=== PATIENT | male | born 1965 | race African-American/Black ===

== ENCOUNTER 2017-09-01 04:59 | Inpatient (IN) | payer BC, OTHER ==
--- NOTE | 2017-09-01 05:12 | PD ---
HPI Chief Complaint: psychiatric evaluation Time Seen by Provider: 05:09 Travel History International Travel<30 days: No Contact w/Intl Traveler<30days: No History of Present Illness HPI Patient comes into the emergency department under police escort under De Jesus act for suicidal ideations. Patient states he's been feeling depressed and having thoughts of suicide. Patient denies any current plans. Patient reports a history of suicide attempt by overdose. Patient denies any medical complaints at this time. Denies any chest pain, shortness of breath, abdominal pain, nausea, vomiting, loss change in bowel or bladder, headaches, or fevers. Denies anything making symptoms better or worse. PFSH Past Medical History Depression: Yes Cardiovascular Problems: Yes (HTN) Diabetes: Yes Diminished Hearing: No Hypertension: Yes Immunizations Current: Yes Past Surgical History Appendectomy: Yes Tonsillectomy: Yes Social History Alcohol Use: Yes (10-15 BEERS DAILY) Tobacco Use: Yes (1PPD) Substance Use: Yes (COCAINE, HERION) Allergies-Medications (Allergen,Severity, Reaction): Coded Allergies: iodine (Verified Allergy, Unknown, 08/26/17) Reported Meds & Prescriptions Reported Meds & Active Scripts Active No Active Prescriptions or Reported Medications Review of Systems Except as stated in HPI: all other systems reviewed are Neg Physical Exam Narrative GENERAL: Well-developed, overly nourished, in no acute distress, and non-ill appearing. SKIN: Focused skin assessment warm and dry. HEAD: Atraumatic. Normocephalic. EYES: Pupils equal and round. EOMI. No scleral icterus. No injection or drainage. ENT: No nasal bleeding or discharge. Mucous membranes pink and moist. NECK: Trachea midline. No JVD. Supple. No nuclear rigidity. CARDIOVASCULAR: Regular rate and rhythm. No murmur appreciated. RESPIRATORY: No accessory muscle use. No respiratory distress. Clear to auscultation. Breath sounds equal bilaterally. MUSCULOSKELETAL: No obvious deformities. No clubbing. No cyanosis. No edema. Full range of motion. NEUROLOGICAL: Awake and alert. No obvious cranial nerve deficits. Motor grossly within normal limits. Normal speech. PSYCHIATRIC: Appropriate mood and affect. Data Data Last Documented VS Vital Signs Date Time Temp Pulse Resp B/P (MAP) Pulse Ox O2 Delivery O2 Flow Rate FiO2 09/01/17 06:21 98.5 84 18 127/70 (89) 100 Room Air Orders Orders Complete Blood Count With Diff (09/01/17 05:09) Comprehensive Metabolic Panel (09/01/17 05:09) Psych Screen (09/01/17 05:09) Drug Screen, Random Urine (09/01/17 05:09) Alcohol (Ethanol) (09/01/17 05:09) Salicylates (Aspirin) (09/01/17 05:09) Tylenol (Acetaminophen) (09/01/17 05:09) Labs Laboratory Tests Test 09/01/17 05:12 White Blood Count 7.3 TH/MM3 Red Blood Count 4.49 MIL/MM3 Hemoglobin 13.2 GM/DL Hematocrit 39.3 % Mean Corpuscular Volume 87.5 FL Mean Corpuscular Hemoglobin 29.5 PG Mean Corpuscular Hemoglobin Concent 33.7 % Red Cell Distribution Width 14.9 % Platelet Count 283 TH/MM3 Mean Platelet Volume 8.2 FL Neutrophils (%) (Auto) 50.8 % Lymphocytes (%) (Auto) 33.2 % Monocytes (%) (Auto) 8.1 % Eosinophils (%) (Auto) 4.3 % Basophils (%) (Auto) 3.6 % Neutrophils # (Auto) 3.7 TH/MM3 Lymphocytes # (Auto) 2.4 TH/MM3 Monocytes # (Auto) 0.6 TH/MM3 Eosinophils # (Auto) 0.3 TH/MM3 Basophils # (Auto) 0.3 TH/MM3 CBC Comment DIFF FINAL Differential Comment Blood Urea Nitrogen 15 MG/DL Creatinine 1.28 MG/DL Random Glucose 158 MG/DL Total Protein 7.9 GM/DL Albumin 3.7 GM/DL Calcium Level 8.8 MG/DL Alkaline Phosphatase 63 U/L Aspartate Amino Transf (AST/SGOT) 40 U/L Alanine Aminotransferase (ALT/SGPT) 36 U/L Total Bilirubin 0.3 MG/DL Sodium Level 138 MEQ/L Potassium Level 4.5 MEQ/L Chloride Level 104 MEQ/L Carbon Dioxide Level 25.4 MEQ/L Anion Gap 9 MEQ/L Estimat Glomerular Filtration Rate 72 ML/MIN Salicylates Level LESS THAN 1.7 MG/DL Acetaminophen Level LESS THAN 2.0 MCG/ML Ethyl Alcohol Level 131 MG/DL MDM Medical Decision Making Medical Screen Exam Complete: Yes Emergency Medical Condition: Yes Differential Diagnosis Homicidal, suicidal, depression, metabolic disturbance, other Narrative Course Patient was seen and examined. Labs were obtained and reviewed with the exception of urine drug screen has not been sent yet. Patient medically cleared for further treatment and evaluation by psych. Final disposition per psych. Diagnosis Primary Impression: Alcohol intoxication Qualified Codes: F10.920 - Alcohol use, unspecified with intoxication, uncomplicated Additional Impressions: Suicidal ideations Medical clearance for psychiatric admission Scripts No Active Prescriptions or Reported Meds Condition: Duc De Leon Sep 01, 2017 05:12
[2017-09-01 05:32] LABS: AUTOMATED NEUTROPHIL # 3.7 TH/MM3 (1.8-7.7); BASOPHIL # 0.3 TH/MM3 (0-0.2); BASOPHIL % 3.6 % (0.0-2.0); EOSINOPHIL # 0.3 TH/MM3 (0-0.4); EOSINOPHIL % 4.3 % (0.0-4.0); HEMATOCRIT 39.3 % (39.0-51.0); HEMO FLAGS DIFF FINAL; LYMPH % 33.2 % (9.0-44.0); LYMPHOCYTE # 2.4 TH/MM3 (1.0-4.8); MEAN CELL VOLUME 87.5 FL (80.0-100.0); MEAN CORPUSCULAR HEMOGLOBIN 29.5 PG (27.0-34.0); MEAN CORPUSCULAR HGB CONC 33.7 % (32.0-36.0); MONO % 8.1 % (0.0-8.0); NEUT % 50.8 % (16.0-70.0); PLATELET COUNT 283 TH/MM3 (150-450); RED BLOOD COUNT 4.49 MIL/MM3 (4.50-5.90); RED CELL DISTRIBUTION WIDTH 14.9 % (11.6-17.2); WHITE BLOOD COUNT 7.3 TH/MM3 (4.0-11.0)
[2017-09-01 05:54] LABS: ALKALINE PHOSPHATASE 63 U/L (45-117); TOTAL BILIRUBIN ADULT 0.3 MG/DL (0.2-1.0)
[2017-09-01 06:07] LABS: ALT (GPT) 36 U/L (12-78); ANION GAP 9 MEQ/L (5-15); AST (GOT) 40 U/L (15-37); BICARBONATE 25.4 MEQ/L (21.0-32.0); BLOOD UREA NITROGEN 15 MG/DL (7-18); CHLORIDE 104 MEQ/L (98-107); GLOMERULAR FILTRATION RATE 72 ML/MIN (>89); SODIUM (NA) 138 MEQ/L (136-145)
[2017-09-01 06:13] LABS: ACETAMINOPHEN LESS THAN 2.0 MCG/ML (10.0-30.0); ALCOHOL 131 MG/DL (0-5); POTASSIUM 4.5 MEQ/L (3.5-5.1)
[2017-09-01 06:21] VITALS: BP 127/70; PULSE 84; RESP 18; TEMP 98.5; O2SAT 100
[2017-09-01 06:58] VITALS: BP 159/82; PULSE 82; RESP 17; TEMP 98.6; O2SAT 95
[2017-09-01] MEDS ORDERED: ACETAMINOPHEN 325 MG TAB PO PRN (11:45)
[2017-09-01] MEDS ORDERED: MAGNESIUM HYDROXIDE SUSP 30 ML CUP PO PRN (11:45)
[2017-09-01] MEDS ORDERED: ALUMINUM/MAGNESIUM/SIMETH 30 ML CUP PO PRN (11:45)
[2017-09-01] MEDS ORDERED: LORazepam 1 MG TAB PO PRN (11:45)
[2017-09-01] MEDS ORDERED: LORazepam 0.5 MG TAB PO PRN (11:45)
[2017-09-01] MEDS ORDERED: LORazepam 2 MG/ML VIAL IM PRN ×2 (11:45)
[2017-09-01] MEDS: NICOTINE 21 MG/24 HR PATCH T-DERMAL SCH (11:45)
[2017-09-01 17:23] VITALS: BP 168/105; PULSE 85; RESP 18; TEMP 98.7; O2SAT 98
[2017-09-01] MEDS: cloNIDine HCL 0.2 MG TAB PO SCH ×2 (18:22→22:00)
[2017-09-01 21:00] VITALS: BP 134/78; PULSE 76; RESP 16
[2017-09-01] MEDS ORDERED: REMOVE OLD NICODERM (NICOTINE) PATCH T-DERMAL SCH (21:00)
[2017-09-02 06:18] VITALS: BP 133/90; PULSE 81; RESP 18; TEMP 100; O2SAT 97
[2017-09-02] MEDS: cloNIDine HCL 0.2 MG TAB PO SCH (06:22)
[2017-09-02] MEDS: NICOTINE 21 MG/24 HR PATCH T-DERMAL SCH (09:00)
[2017-09-02] MEDS ORDERED: INFLUENZA VIRUS VACCINE (QUADRIVALENT) 0.5 ML SYR IM ONE (10:00)
[2017-09-02] MEDS ORDERED: ACETAMINOPHEN 325 MG TAB PO PRN (12:30)
--- NOTE | 2017-09-02 12:48 | HHI.HP ---
Provisional Diagnosis Admission Date Sep 01, 2017 at 11:44 [place]. Adjustment disorder with mixed disturbances of emotion and conduct f 43.25, cocaine abuse f 14.10 alcohol abuse/intoxication f 10.129 Certification of Person's Competence To Provide Express and Informed Consent I have personally examined Marcus ChowJr , a person being served at [facility] on, Sep 02, 2017 12:26. Express and informed consent means consent voluntarily given in writing, by a competent person, after sufficient explanation and disclosure of the subject matter involved to enable the person to make a knowing and willful decision without any element of force, fraud, deceit, duress, or other form of constraint or coercion. This person is 18 years of age or older, is not now known to be incompetent to consent to treatment with a guardian advocate, and does not have a health care surrogate or proxy currently making medical treatment decisions. I have found this person to be one of the following: [xxx] Competent to provide express and informed consent, as defined above, for voluntary admission to this facility and is competent to provide express and informed consent for treatment. He/she has the consistent capacity to make well reasoned, willful, and knowing decisions concerning his or her medical or mental health treatment. The person fully and consistently understands the purpose of the admission for examination/placement and is fully capable of personally exercising all rights assured under [place] Incompetent to provide express and informed consent to voluntary admission, and this is incompetent to provide express and informed consent to treatment. The person must be transferred to involuntary status and a petition for a guardian advocate filed with the Circuit Court. [] Refusing to provide express and informed consent to voluntary admission but is competent to provide express and informed consent for treatment. The person must be discharged or transferred to involuntary status. Form shall be completed within 24 hours of a person's arrival at the receiving facility and filed in the clinical record of each person: 1. Admitted on a voluntary basis 2. Permitted to provide express and informed consent to his/her own treatment 3. Allowed to transfer from involuntary to voluntary status 4. Prior to permitting a person to consent to his or her own treatment after having been previously found incompetent to consent to treatment. History of Present Illness Capacity: Has Capacity Psych Chief Complaint: impression suicidal ideation HPI Patient is a 51-year-old Afro-Afghan male comes her under De Jesus act by the [place] [employer] dated 09-06 at 4:40 AM that document reviewed and essentially states Mr. Chow expressed that he is depressed and feeling suicidal. Patient seen screened in the ED there is no urine toxicology done blood alcohol level of 131. Of interest patient was seen here on 08/26/16 to 08/27/16 under visit [id number] at that time his urine toxicology was positive for cocaine and he had a negative alcohol level, he was psychiatrically screened at that time denies suicidality homicidality and was discharged with referral to [facility]. At the present time patient laying in his bed in his room counselor Khari and medical student Vadim present throughout session patient alert oriented heavyset Afro-Afghan male laying in bed in a marked guarded vigilant irritable and manipulative demanding attitude. Giving vague generalizations about being depressed and nothing going right for him. He denies any prior psychiatric contact hospitalizations his psychotropic medications. He acknowledges polysubstance abuse going back and number of years including IV heroin and mushroom use. He acknowledges being in the [facility] until about 2 months ago he was there for a couple of weeks. The relapsed soon after leaving there. He acknowledges significant alcohol use with detoxes in the past for that reason. He acknowledges at least 4 DUIs in the past and also brief incarcerations related to the above. It appears she is been in a local sober house until about 2 weeks ago was the left to go use multiple drugs and alcohol leading to him being kicked out of their. Patient states he is has 4 children and the [place] area that he has very little contact with. In any event at the present time patient does not meet De Jesus act criteria there is marked manipulation involved with this man's behavior. I feel his issues are substance related in nature. He does not meet criteria for inpatient psychiatric hospitalization thus I will lift the De Jesus act allow the patient to be discharged to himself. We will just bought into the homeless coalition. He does not wish referrals to sober houses or other resources. There will be no Rx by me Review of Systems Constitutional: DENIES: Diaphoretic episodes, Fatigue, Fever, Weight gain, Weight loss, Chills, Dizziness, Change in appetite, Night Sweats Endocrine: DENIES: Heat/cold intolerance, Polydipsia, Polyuria, Polyphagia Eyes: DENIES: Blurred vision, Diplopia, Eye inflammation, Eye pain, Vision loss , Photosensitivity, Double Vision Ears, nose, mouth, throat: DENIES: Tinnitus, Hearing loss, Vertigo, Nasal discharge, Oral lesions, Throat pain, Hoarseness, Ear Pain, Running Nose, Epistaxis, Sinus Pain, Toothache, Odynophagia Respiratory: DENIES: Apneas, Cough, Snoring, Wheezing, Hemoptysis, Sputum production, Shortness of breath Cardiovascular: DENIES: Chest pain, Palpitations, Syncope, Dyspnea on Exertion , PND, Lower Extremity Edema, Orthopnea, Claudication Gastrointestinal: DENIES: Abdominal pain, Black stools, Bloody stools, Constipation, Diarrhea, Nausea, Vomiting, Difficulty Swallowing, Anorexia Genitourinary: DENIES: Sexual dysfunction, Urinary frequency, Urinary incontinence, Urgency, Hematuria, Dysuria, Nocturia, Penile Discharge, Testicular Pain, Testicular Swelling Musculoskeletal: DENIES: Joint pain, Muscle aches, Stiffness, Joint Swelling, Back pain, Neck pain Integumentary: DENIES: Abnormal pigmentation, Nail changes, Pruritus, Rash Hematologic/lymphatic: DENIES: Bruising, Lymphadenopathy Neurologic: DENIES: Abnormal gait, Headache, Localized weakness, Paresthesias, Seizures, Speech Problems, Tremor, Poor Balance Psychiatric: DENIES: Anxiety, Confusion, Mood changes, Depression, Hallucinations, Agitation, Suicidal Ideation, Homicidal Ideation, Delusions Past Psych History Psychological trauma history Patient denies Violence risk - others (6 mos) Low Violence risk - self (6 mos) Low Substance Abuse History Drugs/Alcohol past 12 months Active alcoholic cocaine long history of polysubstance abuse Past Family Social History Coded Allergies: iodine (Verified Allergy, Unknown, 09/01/17) No Active Prescriptions or Reported Meds Current Medications Medications (Trade) Dose Ordered Sig/Shital Route Start Time Stop Time Status Last Admin (Ativan) 1 mg Q6H PRN PO 09/01/17 11:45 09/02/17 10:43 (Ativan Inj) 1 mg Q6H PRN IM 09/01/17 11:45 (Ativan) 0.5 mg Q12H PRN PO 09/01/17 11:45 (Ativan Inj) 0.5 mg Q12H PRN IM 09/01/17 11:45 (Tylenol) 650 mg Q4H PRN PO 09/01/17 11:45 (Milk Of Magnesia Liq) 30 ml DAILY PRN PO 09/01/17 11:45 (Mag-Al Plus Susp Liq) 30 ml Q6H PRN PO 09/01/17 11:45 (Habitrol 21 Mg Patch.24 Hr) 1 patch DAILY T-DERMAL 09/01/17 11:45 (Catapres) 0.2 mg Q8HR PO 09/01/17 18:00 09/02/17 06:22 Miscellaneous Information 1 HS T-DERMAL 09/01/17 21:00 (Tylenol) 650 mg Q4H PRN PO 09/02/17 12:30 UNV Family Psych History Patient refuses to discuss it Social History Patient with 4 children in [place] though from his patient now homeless Patient's Strengths (min. 2) Patient verbal label actions health care Physical Exam Patient medically cleared in ED exam reviewed and agreed with patient laying quietly in his bed though vigilant guarded irritable and manipulative is in no acute distress, he is in no respiratory distress, no complaints of abdominal pain, patient moving all 4 extremities without difficulty, no abnormal motor movements noted Vital Signs Vital Signs Date Time Temp Pulse Resp B/P (MAP) Pulse Ox O2 Delivery O2 Flow Rate FiO2 09/02/17 06:18 100.0 81 18 133/90 (104) 97 09/01/17 06:21 Room Air Mental Status Examination Appearance: Appropriate Consciousness: Alert Orientation: x4 Motor Activity: Normal gait Speech: Unremarkable Language: Adequate Fund of Knowledge: Adequate Attention and Concentration: Other (fair) Memory: Unremarkable Mood: Angry, Irritable, Other (manipulative) Affect: Other (good range intensity) Thought Process & Associations: Circumstantial Thought Content: Appropriate Hallucination Type: None Delusion Type: None Suicidal Ideation: Yes (made vague statements but is manipulative) Suicidal Plan: No Suicidal Intention: No Homicidal Ideation: No Homicidal Plan: No Homicidal Intention: No Insight: Poor Judgment: Poor Assessment & Plan Problem List: (1) Adjustment disorder with mixed disturbance of emotions and conduct ICD Codes: F43.25 - Adjustment disorder with mixed disturbance of emotions and conduct (2) Alcohol abuse with intoxication ICD Codes: F10.129 - Alcohol abuse with intoxication, unspecified (3) Cocaine abuse ICD Codes: F14.10 - Cocaine abuse, uncomplicated Assessment & Plan Estimated LOS: days Discharge Planning Patient does not meet De Jesus criteria will lift De Jesus act. Patient to be discharged to himself. Will refer him to the homeless coalition. No Rx by me. Patient refusing referrals to support groups in town or sober living referral in town Request HC Surrog/Guard Advoc?: No Jez Espinoza MD Sep 02, 2017 12:48
--- NOTE | 2017-09-02 12:52 | HHI.DS ---
Psychiatry Discharge Summary Inpatient Psychiatric care?: Yes Advance Directive: No Reason Not Provided: Not Interested Mental Health AdvanceDirective: No Health Care Proxy: No Admission Admission Date Sep 01, 2017 at 11:44 Admission Diagnosis: (1) Alcohol abuse with intoxication ICD Code: F10.129 - Alcohol abuse with intoxication, unspecified (2) Cocaine abuse ICD Code: F14.10 - Cocaine abuse, uncomplicated (3) Adjustment disorder with mixed disturbance of emotions and conduct ICD Code: F43.25 - Adjustment disorder with mixed disturbance of emotions and conduct Brief History Patient is a 51-year-old Afro-Burmese male comes her under De Jesus act by the [place] [employer] dated 09-06 at 4:40 AM that document reviewed and essentially states Mr. Chow expressed that he is depressed and feeling suicidal. Patient seen screened in the ED there is no urine toxicology done blood alcohol level of 131. Of interest patient was seen here on 08/26/16 to 08/27/16 under visit [id number] at that time his urine toxicology was positive for cocaine and he had a negative alcohol level, he was psychiatrically screened at that time denies suicidality homicidality and was discharged with referral to [facility]. At the present time patient laying in his bed in his room counselor Khari and medical student Vadim present throughout session patient alert oriented heavyset Afro-Burmese male laying in bed in a marked guarded vigilant irritable and manipulative demanding attitude. Giving vague generalizations about being depressed and nothing going right for him. He denies any prior psychiatric contact hospitalizations his psychotropic medications. He acknowledges polysubstance abuse going back and number of years including IV heroin and mushroom use. He acknowledges being in the [facility] until about 2 months ago he was there for a couple of weeks. The relapsed soon after leaving there. He acknowledges significant alcohol use with detoxes in the past for that reason. He acknowledges at least 4 DUIs in the past and also brief incarcerations related to the above. It appears she is been in a local sober house until about 2 weeks ago was the left to go use multiple drugs and alcohol leading to him being kicked out of their. Patient states he is has 4 children and the [place] area that he has very little contact with. In any event at the present time patient does not meet De Jesus act criteria there is marked manipulation involved with this man's behavior. I feel his issues are substance related in nature. He does not meet criteria for inpatient psychiatric hospitalization thus I will lift the De Jesus act allow the patient to be discharged to himself. [facility] He does not wish referrals to sober [facility] or other resources. There will be no Rx by me Tobacco Use In Past 30 Days: 5 or More Cigarettes/Day Alcohol Use: 4 or More Times Per Week Hospital Course Please see note dictated under brief history. Patient does not meet criteria for inpatient psychiatric stay the De Jesus act, thus I'll lift of the [employer] patient to be discharged from self. No Rx by me. Referrer Rene [facility], referral Mr. Alber frank outpatient voluntary substance abuse assessment, referred to NA and AA, no Rx by me Results Blood Pressure 133 / 90 Vital Signs Date Time Temp Pulse Resp B/P (MAP) Pulse Ox O2 Delivery O2 Flow Rate FiO2 09/02/17 06:18 100.0 81 18 133/90 (104) 97 09/01/17 06:21 Room Air Laboratory Tests Test 09/01/17 05:12 Red Blood Count 4.49 MIL/MM3 (4.50-5.90) Monocytes (%) (Auto) 8.1 % (0.0-8.0) Eosinophils (%) (Auto) 4.3 % (0.0-4.0) Basophils (%) (Auto) 3.6 % (0.0-2.0) Basophils # (Auto) 0.3 TH/MM3 (0-0.2) Random Glucose 158 MG/DL (74-106) Aspartate Amino Transf (AST/SGOT) 40 U/L (15-37) Estimat Glomerular Filtration Rate 72 ML/MIN (>89) Salicylates Level LESS THAN 1.7 MG/DL Acetaminophen Level LESS THAN 2.0 MCG/ML Ethyl Alcohol Level 131 MG/DL (0-5) Summary of Procedures None done Pending results at discharge: No Medications # of Antipsychotic meds at D/C: 0 Approp Antipsych med options 1 - Minimum of three failed multiple trials of monotherapy. 2 - Documented plan to taper to monotherapy due to previous use of multiple meds OR cross-taper in progress at D/C. 3 - Documentation of augmentation of Clozapine. 4 - Justification other than those listed in allowable values 1-3, document here : Discharge Discharge Date: Sep 02, 2017 Discharge Diagnosis: (1) Alcohol abuse with intoxication Diagnosis: Secondary ICD Code: F10.129 - Alcohol abuse with intoxication, unspecified (2) Cocaine abuse Diagnosis: Secondary ICD Code: F14.10 - Cocaine abuse, uncomplicated (3) Adjustment disorder with mixed disturbance of emotions and conduct Diagnosis: Principal ICD Code: F43.25 - Adjustment disorder with mixed disturbance of emotions and conduct Pt Condition on Discharge: Stable Discharge Disposition: Discharge Home Discharge Instructions Diet Instructions: As Tolerated, No Restrictions Activities you can perform: Regular-No Restrictions Scheduled Appointment: Donaldo Frank Discharge Time > 30 minutes Mental Status Examination Appearance: Appropriate Consciousness: Alert Orientation: x4 Motor Activity: Normal gait Speech: Unremarkable Language: Adequate Fund of Knowledge: Adequate Attention and Concentration: Other Memory: Unremarkable Mood: Angry, Irritable, Other Affect: Other Thought Process & Associations: Circumstantial Thought Content: Appropriate Hallucination Type: None Delusion Type: None Suicidal Ideation: Yes Suicidal Plan: No Suicidal Intention: No Homicidal Ideation: No Homicidal Plan: No Homicidal Intention: No Insight: Poor Judgment: Poor Discharge/Advance Care Plan Health Problems: (1) Adjustment disorder with mixed disturbance of emotions and conduct (2) Alcohol abuse with intoxication (3) Cocaine abuse Goals to promote your health * To prevent worsening of your condition and complications * To maintain your health at the optimal level Directions to meet your goals Take your medications as prescribed Follow your dietary instruction Follow activity as directed Keep your appointments as scheduled Take your immunizations and boosters as scheduled If your symptoms worsen call your PCP, if no PCP go to Urgent Care Center or Emergency Room For 24/7 questions related to your inpatient stay or results of tests pending at discharge, please contact Dr. Jez Espinoza at Smoking is Dangerous to Your Health. Avoid second hand smoking Jez Espinoza MD Sep 02, 2017 12:52
== END 2017-09-02 13:15 | disposition home or self-care (01) | DRG 882 ==
LOC: NEPD 04:59 → NEDA 11:44 → H260 14:00
PROVIDERS: ADMIT Psychiatry & Neurology Psychiatry; ATTEND Psychiatry & Neurology Psychiatry
DX: F43.25 Adjustment disorder with mixed disturbance of emotions and conduct (principal); R45.851 Suicidal ideations; I10 Essential (primary) hypertension; F14.10 Cocaine abuse, uncomplicated; F10.129 Alcohol abuse with intoxication, unspecified; Y90.6 Blood alcohol level of 120-199 mg/100 ml; Z59.0 Homelessness; Z91.5 Personal history of self-harm; F32.9 Major depressive disorder, single episode, unspecified; E11.9 Type 2 diabetes mellitus without complications; F17.210 Nicotine dependence, cigarettes, uncomplicated
CPT/HCPCS: 80053; 80307; 85025